=== PATIENT | female | born 1990 | race Caucasian/White ===

== ENCOUNTER 2017-09-08 12:19 | Observation (INO) ==
[2017-09-08 13:07] LABS: Amphetamine Screen,Urine Negative ng/mL (Cutoff=1000); Barbiturate Screen,Urine Negative ng/mL (Cutoff=200); Benzodiazepines Screen,Urine Negative ng/mL (Cutoff=200); Cannabinoid Screen,Urine Negative ng/mL (Cutoff = 50); Cocaine Screen,Urine Negative ng/mL (Cutoff= 300); Opiate Screen,Urine Negative ng/mL (Cutoff=300); Phencyclidine Screen,Urine Negative ng/mL (Cutoff=25)
--- NOTE | 2017-09-08 23:36 | OB/GYN Progress Note ---
Date of Encounter: 09/08/17 Time of Encounter: 23:32 - Assessment and Plan (1) 36 weeks gestation of Status: Acute Pt with no symptoms when presented to triage. Blood pressure WNL and tracing reactive per RN Beba. Discharged to home with labor and when to return to triage precautions. Subjective - Subjective Interval history: 36+2 weeks gestation Per RN assesment presents to labor and delivery with complaints to feeling dizzy, followed by tingling in her hands and feet while at work, resolved on its own. Blood pressure and blood glucose taken at work per patient and was normal. Reports good movement. Denied contractions, vaginal bleeding or leaking of fluid. Presents to be checked out. Antepartum ROS: movement normal, no loss of fluid, no vaginal bleeding, no contractions Objective - Vital Signs Vital Signs: Intake and Output 09/08/17 09/08/17 09/08/17 07:59 15:59 23:59 Other: Weight 74.7 kg Patient Weight 09/08/17 23:59 Weight 74.7 kg - Exam FHR: auscultation normal (Per RN)
== END 2017-09-08 13:30 | disposition home or self-care (01) ==
LOC: 1NENULAB
PROVIDERS: ADMIT Obstetrics & Gynecology; ATTEND Obstetrics & Gynecology

== ENCOUNTER 2017-09-14 21:30 | Inpatient (IN) ==
--- NOTE | 2017-09-14 21:34 | OB/GYN Progress Note ---
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 During NST, baby had a 2 minute late deceleration. -Patient reports minimal hydration today, we will bolus her with IV fluids, and encourage PO intake. -Minimum 2 hour monitoring. (2) Orthostatic hypotension Current Visit: Yes Status: Acute IV rehydration Subjective - Subjective Principal diagnosis: Orthostatic Hypotension Interval history: Ms. Snell is a 26 yo female at 37 weeks 1 day who presents to [facility] for complaints of heart palpitations, dizziness, and lightheadedness just prior to arrival. Ms. Snell reports she was playing on her phone when she stood up, at which time she noticed her heart began to race, the blood flowed from her head, and she felt dizzy. It took some time for her symptoms to resolve. She does report a similar episode on Saturday night for which she came to be evaluated for at that time as well. Ms. Snell does report decreased intake of fluids today. She denies any chest pain, diaphoresis, shortness of breath, nausea or vomiting during these episodes. She does report some right-sided calf pain which she states feels like a charley horse. She denies any redness or warmth of her calves. She denies any headaches, visual disturbances, epigastric pain, nausea or vomiting. Ms. Snell denies contractions, vaginal bleeding, or leakage of fluid. She is currently resting comfortably. Antepartum ROS: movement normal, no loss of fluid, no vaginal bleeding, no contractions Objective - Vital Signs Vital Signs: Intake and Output 09/14/17 09/14/17 09/14/17 07:59 15:59 23:59 Other: Weight 73.3 kg Patient Weight 09/14/17 23:59 Weight 73.3 kg - Exam FHR: category 1, category 2 FHR comments: Baseline 130 bpm, moderate variability, 15x15 accelerations. Patient with a 2 minute late deceleration and a short run of tachysystole. Auscultation: bilateral: normal Abdomen: Present: normal appearance, soft, gravid Uterus: Present: normal Attestation Statement - Attestation Attestation: I examined this patient and my medical decision-making was reviewed with the Resident Physician. I agree with the documented findings, disposition and treatment plan as described. Obed Jane CNM
[2017-09-14] MEDS ORDERED: Ringers Solution, Lactated 1,000 ML IVC ONE (21:51)
[2017-09-14] MEDS ORDERED: Ringers Solution, Lactated 1,000 ML ONE ×2 (21:57→22:49)
[2017-09-14 22:13] LABS: Amphetamine Screen,Urine Negative ng/mL (Cutoff=1000); Barbiturate Screen,Urine Negative ng/mL (Cutoff=200); Benzodiazepines Screen,Urine Negative ng/mL (Cutoff=200); Cannabinoid Screen,Urine Negative ng/mL (Cutoff = 50); Cocaine Screen,Urine Negative ng/mL (Cutoff= 300); Opiate Screen,Urine Negative ng/mL (Cutoff=300); Phencyclidine Screen,Urine Negative ng/mL (Cutoff=25)
[2017-09-14] MEDS ORDERED: *HR* Propofol 200 MG/20 ML VIAL IVP ONE (22:46)
[2017-09-14] MEDS ORDERED: *HR* Phenylephrine 10 MG/ML VIAL ONE (22:49)
[2017-09-14] MEDS ORDERED: *HR* Oxytocin 10 UNIT/ML VIAL IM ONE (22:49)
[2017-09-14] MEDS ORDERED: Ondansetron 4 MG/2 ML VIAL ONE (22:55)
[2017-09-14] MEDS ORDERED: *HR* HYDROmorphone (PF) 1 MG/ML SYRINGE ONE ×2 (22:56→23:13)
[2017-09-14] MEDS ORDERED: Ondansetron 4 MG/2 ML VIAL IVP PRN (23:03)
[2017-09-14] MEDS ORDERED: Naloxone 0.4 MG/ML INJ IVP PRN (23:03)
--- NOTE | 2017-09-14 23:03 | Anesthesia Evaluation PreOp ---
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 History: Denies Any Significant HX Other Medical History: Denies Any Significant HX Anesthesia History: No Prior Anesthetic Complications : Yes Alcohol Use: none Drug use: none Medications and Allergies 3 Allergy/AdvReac Type Severity Reaction Status Date / Time No Known Allergies Allergy Verified 09/14/17 21:26 - Meds/Allergy Pre-op Review Medications Reviewed: Yes Allergies Reviewed: Yes Beta Blockers on Current Med List: No Anesthesia Exam Height: 1.65m Weight: 73.3kg - HEENT Pupil (Motor): Pupils equal Mallampati: I Teeth: Normal Oral Opening: Greater than 3 - CAMERA PROTOTYPING ENGINEER LOC: Oriented CAMERA PROTOTYPING ENGINEER Motor: Normal RUE, Normal LUE, Normal RLE, Normal LLE, Normal Face CAMERA PROTOTYPING ENGINEER Sensory: Normal: RUE, LUE, RLE, LLE, Face - Cardiac Rhythm: Regular Murmur: None - Pulmonary Breath Sounds: bilateral Clear Respiratory Effort: Symmetrical Anesthesia Assess/Plan ASA Score: 2, E Modified [place] Scale for Level of Consciousness: Cooperative, oriented, and tranquil Anesthetic Plan: General Autologous Blood: Yes Monitoring Plan: Standard Monitors Recovery Plan: PACU
[2017-09-14] MEDS ORDERED: *HR* Succinylcholine 200 MG/10 ML VIAL IVP ONE (23:35)
--- NOTE | 2017-09-15 00:09 | OB/GYN History & Physical ---
Date of Encounter: 09/15/17 Time of Encounter: 20:00 Assessment and Plan (1) Non-reassuring electronic monitoring tracing Current visit: Yes Status: Acute Terminal Bradycardia to 50 bpm -Stat (2) 37 weeks gestation of Current visit: Yes Status: Acute Patient with non-reassuring FHT as above. -Decision was made to proceed to section. History of Present Illness Chief complaint: Palpitations HPI: Ms. Snell is a 26 year old female at 37 weeks 1 day who presented to obtain [facility] for complaints of heart palpitations prior to arrival. During monitoring after what was thought to be episodes of orthostatic hypotension, baby had a late deceleration lasting approximately 2 minutes. The decision was made to keep the patient for monitoring at that point. Patient was off the monitor to use the bathroom, and at the time of being reattached to the monitor, the baby's heart rate was 50. Baby's heart rate was then lost on the monitor and the decision was made to take the baby to a stat . Past Med Surg Social Fam HX - Past Medical History Attestation: Yes The following information was validated with the patient. Source: patient Medical history: no medical history Psychiatric history: no psych history - Social History Smoking Status: Never smoker Smokeless Tobacco Status: No Alcohol use: none Drug use: none - Family History Mother Adopted: No Living Status: Still Living Hx Family Cardiac Disorders: No Hx Family Respiratory Disorders: No Hx Family Cancer: No Hx Family GI Disorders: No Hx Family Endocrine Disorder: No Hx Family Neuromuscular Disorders: No Hx Family Neurologic Disorders: No Hx Family HEENT Disorders: No Hx Family Autoimmune Disorders: No Obstetrical History - Pregnancies : 4 Para: 3 Term: 3 : 0 Ab's: 0 Livin Medications and Allergies 3 Allergy/AdvReac Type Severity Reaction Status Date / Time No Known Allergies Allergy Verified 09/14/17 21:26 Review of System OB All systems PM: reviewed and no additional remarkable complaints except as stated - Constitutional Constitutional ROS IM: no fatigue, no fever(s) - Cardiovascular Cardiovascular: rapid heart rate, no chest pain, no chest pain with activity, no diaphoresis, no dyspnea, no edema - Respiratory Respiratory: no cough, no dyspnea, no dyspnea on exertion - Gastrointestinal Gastrointestinal: no abdominal pain, no nausea - Neurological Nerological: no headache(s) Exam - Constitutional Constitutional: well developed, well nourished, no acute distress - HEENT HEENT: Mucus Membranes Moist - Lungs Respiratory exam: CTAB - Cardiovascular Cardiovascular exam: RRR, +S1, +S2 - Abdomen Abdomen: Present: bowel sounds normal, non tender - Extremities Extremities exam: normal inspection, radial pulses palpable and symmetrical Deep Tendon Reflex Grade: 2+ Normal (FHT baseline 130, with terminal bradycardia to 50 bpm) Results All other labs normal. - VTE Reasons for not Prescribing Prophylaxis: Treatment not Indicated - Low risk for VTE
--- NOTE | 2017-09-15 00:26 | OB/GYN Procedure Note ---
Section - Date of procedure: 09/14/17 Preop diagnosis: category 3 FHT tracing Post-op diagnosis: other (Tight nuchal cord 2) Surgeon: Gaudencio Huang Anesthesiologist: Maria Eugenia Pennington Heel Washer Stringing Machine Operator: Shukri Hightower Anesthesia Type: General section complications: none Disposition: L&D Recovery Room Specimens: Placenta, Cord blood - Infant (s) A Delivery Date: 09/14/17 Infant Delivery Time: 22:54 Presentation: vertex Route of delivery: other (Primary low transverse section) Gender: Male Viability: Viable Pounds: 5 Ounces: 10 at 1 minute: 8 at 5 minutes: 9 Specimens collected: cord blood Placenta: spontaneous Cord: 3 umbilical vessels - Narrative Narrative: Patient is a 26-year-old female at 37 weeks gestation presented to labor and delivery complaining of chest discomfort and heart racing. On admission heart tones were reactive patient was having only irregular contractions. During observation. She did have a prolonged variable to 60s that did spontaneously recovered she then had a prolonged deceleration to the 50s will be evaluated and decision was made to proceed with emergency primary section given the unknown etiology of the deceleration and failure to respond to repositioning her IV. Patient was verbally consented for the procedure. Description of procedure: Patient was taken operating room where general anesthesia was administered she was prepped and draped in usual sterile fashion bladder was drained of clear urine with a Steele catheter. Scalpel was used to make a Pfannenstiel skin incision which was sharply taken down the rectus fascia fascia was incised midline fascial incision was extended bluntly bilaterally. Rectus muscles divided bluntly and peritoneum was entered bluntly bladder blade was placed scalpel was used to make a low transverse uterine incision. Membranes were ruptured clear fluid. Infant was delivered from vertex presentation. After delivery the head was tight nuchal cord 2 which was reduced. was delivered and was immediately vigorous. Oropharynx and nasopharynx were suctioned of clear fluid cord was clamped and cut and was having nurse personnel who were in attendance. Placenta was delivered manually without difficulty. Uterine cavity was massaged free of all residual tissue. Uterus was closed 0 Vicryl running lock stitch. The incision did extend overbearing of the broad ligament there was a small window in the broad ligament on the left side. Several interrupted [id number] stitches were taken with 0 Vicryl to obtain hemostasis. Careful inspection left broad ligament and hemostasis was ensured. Fascia was closed with 0 Vicryl and irrigation was performed. Skin edges reapproximated with 4-0 Vicryl. All sponge and instruments counts are correct patient was taken recovery in good condition.
[2017-09-15] MEDS: *HR* HYDROmorphone (PF) 1 MG/ML SYRINGE IVP PRN ×2 (00:41→01:39)
[2017-09-15 01:32] LABS: Basophils % 0.3 %; Eosinophils % 0.2 %; Hematocrit 39.3 % (35.3-44.9); Hemoglobin 12.7 g/dL (11.5-15.4); Immature Granulocytes % 0.5 % (0-4); Lymphocytes # 2.1 K/mcL (0.6-4.6); Lymphocytes % 15.7 %; Mean Corpuscular HGB Conc 32.3 g/dL (31.6-35.5); Mean Corpuscular Hemoglobin 28.9 pg (28.0-33.3); Mean Corpuscular Volume 89.3 fL (83.0-100.0); Mean Platelet Volume 10.9 fL (9.4-12.4); Monocytes # 1.1 K/mcL (0.0-1.3); Monocytes % 7.9 %; Platelet Count 249 K/mcL (140-400); Red Cell Distribution Width 13.1 % (11.5-14.5); Segmented Neutrophils % 75.4 %
--- NOTE | 2017-09-15 02:11 | Anesthesia Evaluation Post Op ---
Date of Encounter: 09/15/17 Time of Encounter: 01:15 - Lungs Lungs: Clear Ascult./Percussion - Airway Airway: Non-obstructed - Cardiovascular Regular Rate - Mental Status Mental Status: Alert & Oriented, Answers Appropriately - Pain Pain Scale: 6 Pain Scale used: Numeric (1 - 10) - Nausea Vomiting Nausea Vomiting: Not Present - Hydration Hydration: Ice chips, Steele catheter - Discharge PostOp Status: Transfer Patient to floor Attestation: Patient alert and communicative. MOEx4. Meets criteria for transfer.
[2017-09-15] MEDS ORDERED: Rho Immune Globulin 1,500 UNIT SYRINGE IM ONE (02:15)
[2017-09-15] MEDS ORDERED: *HR* HYDROmorphone 20 MG/20 ML PCA IVC PRN (02:15)
[2017-09-15] MEDS ORDERED: Metoclopramide 10 MG/2 ML VIAL IVP PRN (02:15)
[2017-09-15] MEDS ORDERED: Sennosides 8.6 MG TABLET PO PRN (02:15)
[2017-09-15] MEDS ORDERED: Ondansetron 4 MG/2 ML VIAL IVP PRN (02:15)
[2017-09-15] MEDS ORDERED: Oxytocin 20 units/ LR 1000 mL 20 UNIT/1,000 ML BAG IVC SCH (02:15)
[2017-09-15] MEDS ORDERED: Simethicone 80 MG TAB.CHEW PO PRN (02:15)
--- NOTE | 2017-09-15 02:59 | Event Note ---
Date of Encounter: 09/14/17 Time of Encounter: 22:40 Called into patient's room by RN. heart tones in the 50's for an undetermined amount of time after patient returned from restroom that did not respond to intrauterine resuscitation. Stat requested from CREDIT ANALYSIS MANAGER. OB /PRICE ECONOMIST (Dr Huang) reviewed tracing and called stat . Patient taken to OR and care taken over by Dr Huang.
[2017-09-15] MEDS: Ibuprofen 600 MG TABLET PO PRN ×4 (03:30→22:53)
[2017-09-15 05:41] LABS: Basophils % 0.2 %; Hematocrit 30.5 % (35.3-44.9); Immature Granulocytes % 0.6 % (0-4); Lymphocytes # 1.7 K/mcL (0.6-4.6); Lymphocytes % 10.6 %; Mean Corpuscular HGB Conc 32.1 g/dL (31.6-35.5); Mean Corpuscular Hemoglobin 28.3 pg (28.0-33.3); Mean Corpuscular Volume 88.2 fL (83.0-100.0); Mean Platelet Volume 10.2 fL (9.4-12.4); Monocytes # 1.3 K/mcL (0.0-1.3); Monocytes % 7.9 %; Neutrophils # 13.1 K/mcL (1.6-8.9); Platelet Count 207 K/mcL (140-400); Red Blood Count 3.46 M/mcL (3.82-4.97); Red Cell Distribution Width 13.2 % (11.5-14.5); Segmented Neutrophils % 80.7 %
[2017-09-15 05:42] LABS: Hemoglobin 9.8 g/dL (11.5-15.4)
--- NOTE | 2017-09-15 07:51 | OB/GYN Progress Note ---
Date of Encounter: 09/15/17 Time of Encounter: 07:49 - Assessment and Plan (1) S/P Current Visit: Yes Status: Acute Pt doing well morning after emergency . 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 Appetite improving. No evidence of infection. Subjective - Subjective Principal diagnosis: s/p emergency Interval history: Doing well s/p emergency last evening. Pt's pain well controlled. Taking clears without n/v. Hasn't yet ambulated. Patient reports: pain well controlled, other : doing well (Appetite improving.) Objective - Vital Signs Latest vital signs: Vital Signs Temp Pulse Resp BP Pulse Ox 09/15/17 05:00 97.9 F 92 16 113/77 97 09/15/17 04:00 98.3 F 96 16 114/78 97 09/15/17 03:30 98.1 F 95 16 126/87 97 09/15/17 02:35 97.9 F 96 16 115/78 97 09/15/17 02:05 98.0 F 95 16 117/79 98 Intake and Output 09/14/17 09/14/17 09/15/17 15:59 23:59 07:59 Intake Total 420 / 420 Output Total 1025 / 1025 Balance -605 / -605 Intake: Oral 420 / 420 Output: Estimated Blood Loss 700 / 700 Catheter 325 / 325 Other: Weight 73.3 kg 71.441 kg Patient Weight 09/15/17 23:59 Weight 71.441 kg - Exam Lungs: bilateral: normal Chest: Normal S1, Normal S2 Extremities: Present: normal Abdomen: Present: soft, other (appropriate tenderness) Incision: Present: dressed Uterus: Present: firm - Labs Labs: Laboratory Results - last 24 hr 09/14/17 09/14/17 09/15/17 21:50 21:57 05:16 WBC 13.3 H 16.3 H RBC 4.40 3.46 L Hgb 12.7 9.8 L D Hct 39.3 30.5 L MCV 89.3 88.2 MCH 28.9 28.3 MCHC 32.3 32.1 RDW 13.1 13.2 Plt Count 249 207 MPV 10.9 10.2 Immature Gran % 0.5 0.6 Seg Neutrophils % 75.4 80.7 Lymphocytes % 15.7 10.6 Monocytes % 7.9 7.9 Eosinophils % 0.2 0.0 Basophils % 0.3 0.2 Neutrophils # 10.0 H 13.1 H Lymphocytes # 2.1 1.7 Monocytes # 1.1 1.3 Eosinophils # 0.0 0.0 Basophils # 0.0 0.0 Immature Plt Fraction 6.0 Urine Opiates Screen Negative Ur Barbiturates Screen Negative Ur Phencyclidine Scrn Negative Ur Amphetamines Screen Negative U Benzodiazepines Scrn Negative Urine Cocaine Screen Negative U Marijuana (THC) Screen Negative
[2017-09-15] MEDS: Prenatal Vit/FA 1 EACH TABLET PO SCH (08:55)
[2017-09-15] MEDS: *HR* OxyCODONE/APAP 5/325 TABLET PO PRN ×2 (14:56→20:30)
[2017-09-16] MEDS: *HR* OxyCODONE/APAP 5/325 TABLET PO PRN ×2 (01:14→07:43)
[2017-09-16] MEDS: Prenatal Vit/FA 1 EACH TABLET PO SCH (09:03)
[2017-09-16] MEDS: Ibuprofen 600 MG TABLET PO PRN (09:09)
--- NOTE | 2017-09-16 09:11 | Discharge Summary ---
Date of Encounter: 09/16/17 Time of Encounter: 09:07 - Discharge Diagnosis (1) anemia Priority: Secondary Status: Acute Comments: Pt denies s/sx anemia today. Discharge home with iron. (2) S/P Priority: Primary Status: Acute Comments: Pt meeting POD#2 milestones. She is not yet passing flatus but is tolerating a regular diet without nausea. She is requesting discharge home. Plan for discharge home this afternoon. - Discharge Medications Prescriptions: OxyCODONE/APAP 5/325 [Percocet 5/325 MG] 1 each PO Q4HR PRN #30 tablet PRN Reason: Moderate pain 4-6 Ibuprofen [Motrin] 600 mg PO Q6HR PRN #60 tablet PRN Reason: Cramping Docusate [Colace] 100 mg PO BID #60 capsule Iron Polysaccharide Complex [Ferric X-150] 150 mg PO DAILY #30 capsule Home Medications: Docusate [Colace] 100 mg PO BID #60 capsule 09/16/17 [Rx] Ibuprofen [Motrin] 600 mg PO Q6HR PRN #60 tablet 09/16/17 [Rx] Iron Polysaccharide Complex [Ferric X-150] 150 mg PO DAILY #30 capsule 09/16/17 [Rx] OxyCODONE/APAP 5/325 [Percocet 5/325 MG] 1 each PO Q4HR PRN #30 tablet 09/16/17 [Rx] Vit/FA 1 each PO DAILY tablet 09/16/17 [Rx] Simethicone [Gas-X] 80 mg PO TID PRN tab.chew 09/16/17 [Rx] Allergies/Adverse Reactions: 3 Allergy/AdvReac Type Severity Reaction Status Date / Time No Known Allergies Allergy Verified 09/14/17 21:26 Data Procedures and tests throughout hospitalization: Laboratory Tests 09/14/17 09/14/17 09/15/17 21:50 21:57 05:16 WBC 13.3 H 16.3 H RBC 4.40 3.46 L Hgb 12.7 9.8 L D Hct 39.3 30.5 L MCV 89.3 88.2 MCH 28.9 28.3 MCHC 32.3 32.1 RDW 13.1 13.2 Plt Count 249 207 MPV 10.9 10.2 Immature Gran % 0.5 0.6 Seg Neutrophils % 75.4 80.7 Lymphocytes % 15.7 10.6 Monocytes % 7.9 7.9 Eosinophils % 0.2 0.0 Basophils % 0.3 0.2 Neutrophils # 10.0 H 13.1 H Lymphocytes # 2.1 1.7 Monocytes # 1.1 1.3 Eosinophils # 0.0 0.0 Basophils # 0.0 0.0 Immature Plt Fraction 6.0 Urine Opiates Screen Negative Ur Barbiturates Screen Negative Ur Phencyclidine Scrn Negative Ur Amphetamines Screen Negative U Benzodiazepines Scrn Negative Urine Cocaine Screen Negative U Marijuana (THC) Screen Negative Date of admission: 09/15/17 02:16 Primary care physician: PCP NONE Discharging clinician: Giana Yeh Anticipated date of discharge: 09/16/17 - Patient Status Disposition: Home, Self-Care Condition: Good Functional capacity at discharge: independent ambulation Overall status at discharge: patient is progressing back to baseline - Discharge Instructions Follow Up With: NONE,PCP [Primary Care Provider] - Gaudencio Huang MD [Partnered Physician] - Therese Jane CNM [Advanced Practice Nurse] - - Diet and Activity Activity: increase activity as tolerated Diet: regular diet Hospital Course Reason for admission: other ( distress while in observation) Delivery: section Episiotomy: none Laceration: none Other procedures: none complications: none Discharge diagnosis: IUP at term delivered baby: male Hospital course: - Date of procedure: 09/14/17 Preop diagnosis: category 3 FHT tracing Post-op diagnosis: other (Tight nuchal cord 2) Surgeon: Gaudencio Huang Anesthesiologist: Maria Eugenia Pennington Professor Of Journalism: Shukri Hightower Anesthesia Type: General section complications: none Disposition: L&D Recovery Room Specimens: Placenta, Cord blood - Infant (s) A Infant Delivery Date: 09/14/17 Infant Delivery Time: 22:54 Presentation: vertex Route of delivery: other (Primary low transverse section) Gender: Male Viability: Viable Pounds: 5 Ounces: 10 at 1 minute: 8 at 5 minutes: 9 Specimens collected: cord blood Placenta: spontaneous Cord: 3 umbilical vessels Time Attestation: Total time spent providing and/or coordinating discharge services: Time Spent: Less than 30 minutes - VTE Reasons for not Prescribing Prophylaxis: Treatment not Indicated - Low risk for VTE Documentation of Mechanical Device: Intermittent pneumatic compression device Exam - Constitutional Vitals: Temp Pulse Resp BP Pulse Ox 97.9 F 99 16 109/74 98 09/16/17 07:30 09/16/17 07:30 09/16/17 07:30 09/16/17 07:30 09/15/17 20:34 General appearance IM: A&O X 3, pleasant, no acute distress - Respiratory Respiratory exam: Present: CTAB - Cardiovascular Cardiovascular exam IM: Present: RRR, +S1, +S2 - GI/Abdominal GI/Abdominal exam IM: soft, no peritoneal signs Incision: intact (no s/sx infection) - Uterine Tone: Firm Uterus Position: 1 Finger Below Umbilicus - Extremities Exam Extremities exam IM: Present: normal inspection - Neurological Exam Neurological exam: normal gait, oriented X3 - Psychiatric Additional comments: reports good mood - Other Additional findings: OARRS reviewed, Pt plans for s/o to have vasectomy for contraception
[2017-09-16 11:43] VITALS: BP 118/80
== END 2017-09-16 17:15 | disposition home or self-care (01) | DRG 765 ==
LOC: 1NENULAB → 1NENUOBS 09-15 02:15
PROVIDERS: ADMIT Obstetrics & Gynecology; ATTEND Obstetrics & Gynecology